=== PATIENT | male | born 1955 | race Two or more races ===

== ENCOUNTER 2024-07-25 15:03 | Inpatient (IN) | payer MEDICAID, OTHER ==
[~2024-07-25] VITALS: Ht 175.3 cm; Wt 99.0 kg
[2024-07-25 15:41] LABS: Basophils # (auto) 0 10 ^3/uL (0-0.2); Basophils % (auto) 0.5 % (0.0-2.0); Eosinophils # (auto) 0.1 10 ^3/uL (0-0.8); Eosinophils % (auto) 1.4 % (0.0-7.0); Hemoglobin 12.4 g/dL (13.5-17.5); Lymphocytes # (auto) 1.3 10 ^3/uL (0.4-5.4); Lymphocytes % (auto) 18.9 % (10.0-50.0); Mean Corpuscular Hemoglobin 29.5 pg (28.0-32.0); Mean Corpuscular Hgb Conc. 34.5 g/dL (32.0-36.0); Mean Corpuscular Volume 85.6 fL (80.0-100.0); Monocytes # (auto) 0.8 10 ^3/uL (0-1.3); Monocytes % (auto) 11.3 % (0.0-12.0); Neutrophils # (auto) 4.8 10 ^3/uL (1.6-8.6); Neutrophils % (auto) 67.9 % (37.0-80.0); Platelet Count (auto) 259 10^3/uL (140-450); Red Cell Distribution Width 14.2 % (11.8-14.3); White Blood Cell 7.1 10^3/uL (4.4-10.8)
[2024-07-25 15:48] LABS: Chloride 106 mmol/L (98-107); Potassium 4.1 mmol/L (3.5-5.1); Sodium 141 mmol/L (136-145)
[2024-07-25 15:49] LABS: Anion Gap 7 (5-15); Calcium 9.4 mg/dL (8.7-10.4); Carbon Dioxide 28 mmol/L (20-31)
[2024-07-25 15:54] LABS: BUN/Creatinine Ratio 14.3 (10.0-20.0); Blood Urea Nitrogen 15 mg/dL (9-23); Glucose 156 mg/dL (74-106)
--- NOTE | 2024-07-25 16:00 | DVH ---
EXAM: CT HEAD WITHOUT CONTRAST INDICATION: near syncope TECHNIQUE: CT of the head without intravenous contrast. Radiation Dose : 1. Head: CT Dose: CTDI volume is 59.05 mGy. Dose-length product is 1064.59 mGy*cm The dose indicators for CT are the volume Computed Tomography (CT) Dose Index (CTDIvol) and the Dose Length Product (DLP), and are measured in units of mGy and mGy-cm, respectively. These indicators are not patient dose, but values generated from the CT scanner acquisition factors. The report includes radiation exposure data for exposures received during this examination. COMPARISON: None FINDINGS: There is no evidence of acute intracranial hemorrhage, extra-axial collection, mass effect, midline s hift, herniation or hydrocephalus. The ventricles, sulci and cisterns are age appropriate. The moreau-white differentiation is intact. Patchy periventricular and subcortical white matter hypoattenuation is nonspecific but may be related to small vessel ischemic disease. The visualized paranasal sinuses and mastoid air cells are clear. The surrounding soft tissues and osseous structures are unremarkable. IMPRESSION: 1. No acute intracranial abnormality. Radiation optimization: All CT scans at this facility use at least one of these dose optimization marvin hniques: automated exposure control mA and/or kV adjustment per patient size (includes targeted exam s where dose is matched to clinical indication) or iterative reconstruction.
--- NOTE | 2024-07-25 16:01 | DVH ---
EXAM: XR Chest, 1 View CLINICAL INDICATION: near syncope TECHNIQUE: Frontal view of the chest. COMPARISON: None FINDINGS: LUNGS AND PLEURAL SPACES: Unremarkable. No consolidation. No pneumothorax. HEART: Unremarkable. No cardiomegaly. MEDIASTINUM: Unremarkable. Normal mediastinal contour. BONES/JOINTS: Unremarkable. No acute fracture. OTHER FINDINGS: . . . IMPRESSION: No acute cardiopulmonary process. HS:Y
[2024-07-25 18:27] LABS: Urine Bacteria None Seen /hpf (None Seen)
[2024-07-25 18:35] LABS: Urine Blood 1+ /uL (Negative); Urine Clarity Clear (Clear); Urine Color Light-Yellow (Yellow); Urine Protein, UAD 3+ (Negative); Urine Specific Gravity 1.025 (1.001-1.035); Urine Urobilinogen Normal (Negative); Urine WBC 1 /hpf (0 - 3)
[2024-07-25] MEDS: HYDROcodone-ACET 5/325MG TAB PO ONE (20:00)
--- NOTE | 2024-07-25 20:10 | ED.PDOC ---
HPI (NEURO) HPI Comments 68y M who presents to the ED for chief complaint of dizziness. Pt states he has had 2x falls in the past 1 week. Pt had mechanical fall 1 week prior and fell on L leg and has been having weakness since. Pt earlier this AM, was using restroom and had mechanical fall onto bathtub and states he fell on his chest and has been having pain by the R side of his chest. Pt denies any associated loss of consciousness and is alert and oriented x 4 in the ED. Pt since has been having pain radiating to the L hip and back with associated dizziness and came to the ED for further evaluation. Pt has noted elevated blood pressure of 168/91 in the ED, with all other vitals in normal range. Pt in the ED, otherwise denies any other symptoms at this time. Chief Complaint: Dizziness Time Seen by MD: 20:06 Reviewed Notes: Medications, Allergies Information Source: Patient, Spouse Mode of Arrival: Wheelchair Brought in by: spouse Past Medical History PAST MEDICAL HISTORY: DM Surgical History: Denies all surgeries Family History Family History: Reviewed,noncontributory to illness Social History Smoker: Non-Smoker Alcohol: Denies ETOH Use Drugs: Denies Drug Use Lives In: Home Constitutional: denies: chills, diaphoresis, fatigue, fever, malaise, sweats, weakness, others EENTM: denies: blurred vision, double vision, ear bleeding, ear discharge, ear drainage, ear pain, ear ringing, eye pain, eye redness, hearing loss, mouth pain, mouth swelling, nasal discharge, nose bleeding, nose congestion, nose pain, photophobia, tearing, throat pain, throat swelling, voice changes, others Respiratory: denies: cough, hemoptysis, orthopnea, SOB at rest, shortness of breath, SOB with excertion, stridor, wheezing, others Cardiovascular: denies: chest pain, dizzy spells, diaphoresis, Dyspnea on exertion, edema, irregular heart beat, left arm pain, lightheadedness, palpitations, PND, syncope, others Gastrointestinal: denies: abdomen distended, abdominal pain, blood streaked bowels, constipated, diarrhea, dysphagia, difficulty swallowing, hematemesis, melena, nausea, poor appetite, poor fluid intake, rectal bleeding, rectal pain, vomiting, others Genitourinary: denies: burning, dysuria, flank pain, frequency, hematuria, incontinence, penile discharge, penile sore, pain, testicle pain, testicle swelling, urgency, others Neurological: reports: dizziness; denies: fainting, headache, left sided numbness, left sided weakness, numbness, paresthesia, pre-existing deficit, right sided numbness, right sided weakness, seizure, speech problems, tingling, tremors, weakness, others Musculoskeletal: reports: back pain, others (chest wall pain); denies: gout, joint pain, joint swelling, muscle pain, muscle stiffness, neck pain Integumetry: denies: bruises, change in color, change in hair/nails, dryness, laceration, lesions, lumps, rash, wounds, others Allergic/Immunocompromised: denies: Difficulty Healing, Frequent Infections, Hives, Itching, others Hematologic/Lymphatic: denies: anemia, blood clots, easy bleeding, easy bruisi ng, swollen glands, others Endocrine: denies: excessive hunger, excessive sweating, excessive thirst, exce ssive urination, flushing, intolerance to cold, intolerance to heat, unexplained weight gain, unexplained weight loss, others Psychiatric: denies: anxiety, bipolar disorder, depression, hopeless, panic disorder, schizophrenia, sleepless, suicidal, others All Other Systems: Reviewed and Negative Physical Exam General Appearance: No Apparent Distress, Normal HEENT: Normal ENT Inspection, Pharynx Normal, TMs Normal Neck: Full Range of Motion, Non-Tender, Normal, Normal Inspection Respiratory: Chest Non-Tender, Lungs Clear, No Accessory Muscle Use, No Respiratory Distress, Normal Breath Sounds Cardiovascular: Other (R sided chest wall tenderness to palpation) Breast Exam: Deferred Gastrointestinal: No Organomegaly, Non Tender, No Pulsatile Mass, Normal Bowel Sounds, Soft Genitalia: Deferred Pelvic: Deferred Rectal: Deferred Extremities: No calf tenderness, Normal capillary refill, Normal inspection, Normal range of motion, Non-tender, No pedal edema Musculoskeletal : Apperance: Normal Neurologic: Alert, health science specialist II-XII nml as Tested, No Motor Deficits, Normal Affect, Normal Mood, No Sensory Deficits Cerebellar Function: NOT DONE Reflexes: NOT DONE Skin: Dry, Normal Color, Warm Lymphatic: No Adenopathy Was a procedure done? Was a procedure done?: No Differential Diagnosis (SZ) General Weakness: Anemia, Dehydration, Electrolyte imbalance, Hypoglycemia, TIA, Other (metabolic encephalopathy, chest wall pain, ) X-Ray, Labs, Meds, VS Vital Signs Date Time Temp Pulse Resp B/P (MAP) Pulse Ox O2 Delivery O2 Flow Rate FiO2 07/25/24 23:47 88 20 94 Room Air* 0 21 07/25/24 23:46 98.0 88 20 147/87 (107) 94 98.0 07/25/24 15:40 99.2 91 18 168/91 (116) 97 07/25/24 15:28 89 Lab Test 07/25/24 18:13 07/25/24 16:54 07/25/24 15:26 Range/Units Urine Color Light-yellow Yellow Urine Clarity Clear Clear Urine pH 6.0 5.0-9.0 Urine Specific [place] 1.025 1.001-1.035 Urine Protein 3+ H Negative Urine Ketones Negative Negative Urine Blood 1+ H Negative /uL Urine Nitrite Negative Negative Urine Bilirubin Negative Negative Urine Urobilinogen Normal Negative mg/dL Urine Leukocyte Esterase Negative Negative /uL Urine RBC 1 0 - 3 /hpf Urine WBC 1 0 - 3 /hpf Urine Squamous Epithelial Cells None seen <5 /hpf Urine Bacteria None seen None Seen /hpf Urine Glucose 4+ H Normal mg/dL Troponin I High Sensitivity 6 6 </=54 ng/L White Blood Count 7.1 4.4-10.8 10^3/uL Red Blood Count 4.20 L 4.5-5.90 10^6/uL Hemoglobin 12.4 L 13.5-17.5 g/dL Hematocrit 36.0 L 41.0-53.0 % Mean Corpuscular Volume 85.6 80.0-100.0 fL Mean Corpuscular Hemoglobin 29.5 28.0-32.0 pg Mean Corpuscular Hemoglobin Concent 34.5 32.0-36.0 g/dL Red Cell Distribution Width 14.2 11.8-14.3 % Platelet Count 259 140-450 10^3/uL Mean Platelet Volume 8.0 6.9-10.8 fL Neutrophils (%) (Auto) 67.9 37.0-80.0 % Lymphocytes (%) (Auto) 18.9 10.0-50.0 % Monocytes (%) (Auto) 11.3 0.0-12.0 % Eosinophils (%) (Auto) 1.4 0.0-7.0 % Basophils (%) (Auto) 0.5 0.0-2.0 % Neutrophils # (Auto) 4.8 1.6-8.6 10 ^3/uL Lymphocytes # (Auto) 1.3 0.4-5.4 10 ^3/uL Monocytes # (Auto) 0.8 0-1.3 10 ^3/uL Eosinophils # (Auto) 0.1 0-0.8 10 ^3/uL Basophils # (Auto) 0 0-0.2 10 ^3/uL Nucleated Red Blood Cells 0.0 % Sodium Level 141 136-145 mmol/L Potassium Level 4.1 3.5-5.1 mmol/L Chloride Level 106 98-107 mmol/L Carbon Dioxide Level 28 20-31 mmol/L Anion Gap 7 5-15 Blood Urea Nitrogen 15 9-23 mg/dL Creatinine 1.05 0.700-1.30 mg/dL Glomerular Filtration Rate Calc 77 >90 mL/min BUN/Creatinine Ratio 14.3 10.0-20.0 Serum Glucose 156 H 74-106 mg/dL Hemoglobin A1c Pending Calcium Level 9.4 8.7-10.4 mg/dL Current Medications Medications (Trade) Dose Ordered Sig/Hazel Route Start Time Stop Time Status Last Admin Acetaminophen/ Hydrocodone Bitart ([place] 5/325MG Tab) 1 tab ONCE ONCE PO 07/25/24 20:00 07/25/24 23:54 DC 07/25/24 20:00 [place] [address] Ph: [phone] DIAGNOSTIC IMAGING Diagnostic Imaging Report : [id number] Signed PATIENT: JOHN LIGHT ACCT: [id number] UNIT: [id number] : 1955 LOC: ER ROOM / BED: / AGE / SEX: 68 / M ADM STATUS: REG ER SERVICE 1520 ORDERING PHYSICIAN: GINO PICHARDO MD PROCEDURE(s): HWOCT - HEAD WITHOUT CONTRAST REASON: near syncope ORDER NUMBER(s): [id number], ACCESSION NUMBER(s): [id number] EXAM: CT HEAD WITHOUT CONTRAST INDICATION: near syncope TECHNIQUE: CT of the head without intravenous contrast. Radiation Dose : 1. Head: CT Dose: CTDI volume is 59.05 mGy. Dose-length product is 1064.59 mGy*cm The dose indicators for CT are the volume Computed Tomography (CT) Dose Index (CTDIvol) and the Dose Length Product (DLP), and are measured in units of mGy and mGy-cm, respectively. These indicators are not patient dose, but values ge nerated from the CT scanner acquisition factors. The report includes radiation exposure data for exposures received during this examination. COMPARISON: None FINDINGS: There is no evidence of acute intracranial hemorrhage, extra-axial collection, mass effect, midline shift, herniation or hydrocephalus. The ventricles, sulci and cisterns are age appropriate. The moreau-white differentiation is intact. Patchy periventricular and subcortical white matter hypoattenuation is nonspecific but may be related to small vessel ischemic disease. The visualized paranasal sinuses and mastoid air cells are clear. The surrounding soft tissues and osseous structures are unremarkable. IMPRESSION: 1. No acute intracranial abnormality. Radiation optimization: All CT scans at this facility use at least one of these dose optimization techniques: automated exposure control mA and/or kV ad justment per patient size (includes targeted exams where dose is matched to clinical indication) or iterative reconstruction. ATED BY: ABY CARDENAS MD DICTATED DATE/TIME: 07/25/241556 SIGNED BY: ABY CARDENAS MD SIGNED DATE/TIME: 07/25/241556 CC: [place] [address] Ph: [phone] DIAGNOSTIC IMAGING Diagnostic Imaging Report : [id number] Signed PATIENT: JOHN LIGHT ACCT: [id number] UNIT: [id number] : 1955 LOC: ER ROOM / BED: / AGE / SEX: 68 / M ADM STATUS: REG ER SERVICE 1520 ORDERING PHYSICIAN: GINO PICHARDO MD PROCEDURE(s): CXR2 - CHEST TWO VIEWS ROUTINE REASON: near syncope ORDER NUMBER(s): [id number], ACCESSION NUMBER(s): [id number] EXAM: XR Chest, 1 View CLINICAL INDICATION: near syncope TECHNIQUE: Frontal view of the chest. COMPARISON: None FINDINGS: LUNGS AND PLEURAL SPACES: Unremarkable. No consolidation. No pneumothorax. HEART: Unremarkable. No cardiomegaly. MEDIASTINUM: Unremarkable. Normal mediastinal contour. BONES/JOINTS: Unremarkable. No acute fracture. OTHER FINDINGS: . . . IMPRESSION: No acute cardiopulmonary process. HS:Y ATED BY: ALVA FRENCH MD DICTATED DATE/TIME: 07/25/24 155 SIGNED BY: ALVA FRENCH MD SIGNED DATE/TIME: 07/25/24 155 CC: Time of 1ST Reevaluation: 20:35 Reevaluation 1ST: Unchanged Patient Education/Counseling: Diagnosis, Treatment Family Education/Counseling: Diagnosis, Treatment Departure 1 Departure Time of Disposition: 00:50 (Patient presented with dizziness today and should be admitted. Data: 1. I ordered and reviewed the result of at least 3 labs including a CBC, BMP, and troponin. 2. I independently interpreted the following tests: EKG which shows a sinus arrhythmia and a chest x-ray which shows benign chest and a CT head which shows benign brain.Risk:This patient has a high risk of morbidity due to further diagnostic testing or treatment and may suffer from an acute cardiac, neurologic, or infectious disorder. Rationale: Patient should be admitted to the hospital for further management.) Impression: Primary Impression: Dizziness Additional Impression: Multiple falls Disposition: ADMITTED INPATIENT Admit to: Med Surg Condition: Serious Critical Care Note Critical Care Time?: No Stability Stability form required: No Heart Score Heart Score: Heart Score Response (Comments) Value History N/A 0 EKG N/A 0 Age N/A 0 Risk Factors N/A 0 Troponin N/A 0 Total 0 I personally scribed for GINO PICHARDO MD ([email or web address]) on 07/25/24 at 20:10. Electronically submitted by Jojo Collins ([email or web address]). I personally scribed for GINO PICHARDO MD ([email or web address]) on 07/25/24 at 20:14. Electronically submitted by Jojo Collins ([email or web address]). GINO PICHARDO MD Jul 25, 2024 20:10
[2024-07-25 23:47] VITALS: PULSE 88; RESP 20; O2SAT 94
[2024-07-26] VITALS (9 sets, daily range): BP systolic 143–177; BP diastolic 50–96; PULSE 80–91; RESP 16–20; TEMP 97.6–98.4; O2SAT 92–96
[2024-07-26] MEDS ORDERED: ACETAMINOPHEN 325 MG TAB PO PRN (00:30)
[2024-07-26] MEDS ORDERED: ONDANSETRON HCL 4 MG/2 ML VIAL IV PRN (00:30)
[2024-07-26] MEDS ORDERED: DOCUSATE SOD 100 MG CAP PO PRN (00:30)
[2024-07-26] MEDS ORDERED: MORPHINE SULFATE INJ 2 MG/ml SYRG IV PRN ×2 (00:30→01:30)
--- NOTE | 2024-07-26 01:26 | DVHHP2 ---
History of Present Illness Reason for Visit: Dizziness History of Present Illness The patient is a 68-year-old male with past medical history of diabetes mellitus who presented to [facility] ED for evaluation of dizziness. Patient reports he has had 2x falls in the past 1 week, had mechanical fall 1 week prior, fell on Left leg, and has been having weakness since. Patient was using restroom and had mechanical fall onto bathtub, states he fell on his chest and has been having pain by the right side of his chest, has been having pain radiating to the Left hip and back with associated dizziness, getting worse that prompted this visit. Patient was seen and evaluated in the ED, laboratory data shows WBC 7.1, platelets 259, sodium 141, potassium 4.1, BUN 15, creatinine 1.05, glucose 156, hemoglobin A1c 6.8, troponin 6. Head CT showed no acute intracranial abnormality. Left hip CT revealing nondisplaced fracture through the left greater trochanter; visualized pelvic viscera demonstrates moderate prostatomegaly. Please see medication orders section in the computer. On my assessment, patient denied chest pain, no headache, no dizziness, no diaphoresis, no shortness of breath, no nausea, no vomiting, no fever, no chills. Patient was admitted for further evaluation and medical management. Past Medical History DM Past Surgical History Denies all surgeries Family History Reviewed, noncontributory to the management of this case. Past Social History The patient lives at home, denies smoking, alcohol or illicit drugs abuse. Review of Systems Constitutional: Yes: Weakness; No: Fever, Chills, Sweats, Malaise, Other Eyes: No: Pain, Vision change, Conjunctivae inflammation, Eyelid inflammation, Other, Redness ENT: No: Ear pain, Ear discharge, Nose pain, Nose discharge, Nose congestion, Mouth pain, Mouth swelling, Throat pain, Throat swelling, Other Respiratory: No: Cough, Dry, Shortness of breath, SOB with excertion, Wheezing, Hemoptysis, Pleuritic Pain, Sputum, Wheezing, Other Cardiovascular: No: Chest Pain, Palpitations, Orthopnea, Paroxysmal Noc. Dyspnea, Edema, Lt Headedness, Other Gastrointestinal: No: Nausea, Vomiting, Abdominal Pain, Diarrhea, Constipation, Melena, Hematochezia, Other Genitourinary: No Dysuria, No Frequency, No Incontinence, No Hematuria, No Retention, No Other Musculoskeletal: other (Left hip pain), back pain; No: neck pain, shoulder p ain, arm pain, hand pain, leg pain, foot pain Skin: No: Rash, Lesions, Jaundice, Bruising, Other Neurological: No: Weakness, Numbness, Incoordination, Change in speech, Confusion, Seizures, Other Allergies: Coded Allergies: NO KNOWN ALLERGIES (Unverified , 07/25/24) Medications Current Medications Medications Dose Ordered Sig/Hazel Route Start Time Stop Time Status Last Admin Dose Admin Hydralazine HCl 10 mg Q6HP PRN IV 07/26/24 00:30 Sodium Chloride 10 ml Q8HR IV 07/26/24 06:00 Acetaminophen/ Hydrocodone Bitart 1 tab Q4HP PRN PO 07/26/24 00:30 Ondansetron HCl 4 mg Q4HP PRN IV 07/26/24 00:30 Docusate Sodium 100 mg BIDPRN PRN PO 07/26/24 00:30 Enoxaparin Sodium 40 mg DAILY SC 07/26/24 10:00 Acetaminophen 650 mg Q6HP PRN PO 07/26/24 00:30 Morphine Sulfate 2 mg Q4HPRN PRN IV 07/26/24 00:30 Exam Vital Signs Vital Signs Date Time Temp Pulse Resp B/P (MAP) Pulse Ox O2 Delivery O2 Flow Rate FiO2 07/25/24 23:47 88 20 94 Room Air* 0 21 07/25/24 23:46 98.0 147/87 (107) 98.0 General Appearance: Alert, Oriented X3, Cooperative, No acute distress HEENT: Atraumatic, PERRLA, EOMI, Mucous membr. moist/pink Respiratory: Clear to auscultation, Normal air movement Cardiovascular: Regular rate, Normal S1, Normal S2, No murmurs Abdominal: Normal bowel sounds, Soft, No tenderness, No hepatospenomegaly, No masses Extremities: No clubbing, No cyanosis, No edema, Normal pulses, Other (Left hip tenderness) Skin: No rashes, No breakdown, No significant lesion Neuro: Normal speech, Normal tone, Sensation intact, Cranial nerves 3-12 NL, Reflexes 2+, Other (Generalized weakness) Psych/Mental Status: Mental status NL, Mood NL Labs/Xrays Labs Test 07/25/24 18:13 07/25/24 16:54 07/25/24 15:26 Range/Units Urine Color Light-yellow Yellow Urine Clarity Clear Clear Urine pH 6.0 5.0-9.0 Urine Specific [place] 1.025 1.001-1.035 Urine Protein 3+ H Negative Urine Ketones Negative Negative Urine Blood 1+ H Negative /uL Urine Nitrite Negative Negative Urine Bilirubin Negative Negative Urine Urobilinogen Normal Negative mg/dL Urine Leukocyte Esterase Negative Negative /uL Urine RBC 1 0 - 3 /hpf Urine WBC 1 0 - 3 /hpf Urine Squamous Epithelial Cells None seen <5 /hpf Urine Bacteria None seen None Seen /hpf Urine Glucose 4+ H Normal mg/dL Troponin I High Sensitivity 6 </=54 ng/L White Blood Count 7.1 4.4-10.8 10^3/uL Red Blood Count 4.20 L 4.5-5.90 10^6/uL Hemoglobin 12.4 L 13.5-17.5 g/dL Hematocrit 36.0 L 41.0-53.0 % Mean Corpuscular Volume 85.6 80.0-100.0 fL Mean Corpuscular Hemoglobin 29.5 28.0-32.0 pg Mean Corpuscular Hemoglobin Concent 34.5 32.0-36.0 g/dL Red Cell Distribution Width 14.2 11.8-14.3 % Platelet Count 259 140-450 10^3/uL Mean Platelet Volume 8.0 6.9-10.8 fL Neutrophils (%) (Auto) 67.9 37.0-80.0 % Lymphocytes (%) (Auto) 18.9 10.0-50.0 % Monocytes (%) (Auto) 11.3 0.0-12.0 % Eosinophils (%) (Auto) 1.4 0.0-7.0 % Basophils (%) (Auto) 0.5 0.0-2.0 % Neutrophils # (Auto) 4.8 1.6-8.6 10 ^3/uL Lymphocytes # (Auto) 1.3 0.4-5.4 10 ^3/uL Monocytes # (Auto) 0.8 0-1.3 10 ^3/uL Eosinophils # (Auto) 0.1 0-0.8 10 ^3/uL Basophils # (Auto) 0 0-0.2 10 ^3/uL Nucleated Red Blood Cells 0.0 % Sodium Level 141 136-145 mmol/L Potassium Level 4.1 3.5-5.1 mmol/L Chloride Level 106 98-107 mmol/L Carbon Dioxide Level 28 20-31 mmol/L Anion Gap 7 5-15 Blood Urea Nitrogen 15 9-23 mg/dL Creatinine 1.05 0.700-1.30 mg/dL Glomerular Filtration Rate Calc 77 >90 mL/min BUN/Creatinine Ratio 14.3 10.0-20.0 Serum Glucose 156 H 74-106 mg/dL Hemoglobin A1c 6.8 H <5.7 % A1C Calcium Level 9.4 8.7-10.4 mg/dL PATIENT: JOHN LIGHT ACCT: [id number] UNIT: [id number] : 1955 LOC: ER ROOM / BED: / AGE / SEX: 68 / M ADM STATUS: REG ER SERVICE 1520 ORDERING PHYSICIAN: GINO PICHARDO MD PROCEDURE(s): HWOCT - HEAD WITHOUT CONTRAST REASON: near syncope ORDER NUMBER(s): [id number], ACCESSION NUMBER(s): [id number] EXAM: CT HEAD WITHOUT CONTRAST INDICATION: near syncope TECHNIQUE: CT of the head without intravenous contrast. Radiation Dose : 1. Head: CT Dose: CTDI volume is 59.05 mGy. Dose-length product is 1064.59 mGy*cm The dose indicators for CT are the volume Computed Tomography (CT) Dose Index (CTDIvol) and the Dose Length Product (DLP), and are measured in units of mGy an d mGy-cm, respectively. These indicators are not patient dose, but values generated from the CT scanner acquisition factors. The report includes radiation exposure data for exposures received during this examination. COMPARISON: None FINDINGS: There is no evidence of acute intracranial hemorrhage, extra-axial collection, mass effect, midline shift, herniation or hydrocephalus. The ventricles, sulci and cisterns are age appropriate. The moreau-white differentiation is intact. Patchy periventricular and subcortical white matter hypoattenuation is nonspecific but may be related to small vessel ischemic disease. The visualized paranasal sinuses and mastoid air cells are clear. The surrounding soft tissues and osseous structures are unremarkable. IMPRESSION: 1. No acute intracranial abnormality. ORDERING PHYSICIAN: ROHINI ZEE DNP PROCEDURE(s): LHPCT - CT L HIP WITH OUT CONTRAST REASON: Left hip pain ORDER NUMBER(s): [id number], ACCESSION NUMBER(s): [id number] INDICATION: Left hip pain COMPARISON: CT HEAD WITHOUT CONTRAST on DOS: 07/25/24 TECHNIQUE: CT of the left left hip was performed without contrast. Volume transverse images were obtained and reconstructed in multiple planes using bone and soft tissue algorithms. Radiation Dose Information: CT Dose: CTDI volume is 22 mGy. Dose-length product is 788 mGy*cm Findings/ IMPRESSION: Nondisplaced fracture through the left greater trochanter. Visualized pelvic viscera demonstrates moderate prostatomegaly. ORDERING PHYSICIAN: GINO PICHARDO MD PROCEDURE(s): CXR2 - CHEST TWO VIEWS ROUTINE REASON: near syncope ORDER NUMBER(s): [id number], ACCESSION NUMBER(s): [id number] EXAM: XR Chest, 1 View CLINICAL INDICATION: near syncope TECHNIQUE: Frontal view of the chest. COMPARISON: None FINDINGS: LUNGS AND PLEURAL SPACES: Unremarkable. No consolidation. No pneumothorax. HEART: Unremarkable. No cardiomegaly. MEDIASTINUM: Unremarkable. Normal mediastinal contour. BONES/JOINTS: Unremarkable. No acute fracture. OTHER FINDINGS: IMPRESSION: No acute cardiopulmonary process. Assessment/Plan Assessment/Plan Dizziness Multiple falls Left hip fracture Left hip pain Generalized weakness Diabetes mellitus with hyperglycemia Plan 1. Admit to med surge unit 2. Breathing treatment 3. Pain control management 4. Management of fluids and electrolytes 5. Consultation for hospitalist 6. Diagnostic tests chest x-ray 7. DVT prophylaxis-on SCDs 8. Repeat labs CBC, CMP in a.m. 9. Continue with current medical management 10. Treatment plan discussed with patient and RN. Patient verbalized understanding. Plan discussed with: Patient, Other (RN) My Orders Orders - ROHINI ZEE DNP Procedure Category Date Status Time Ct L Hip With Out CT 07/26/24 Taken Contrast 00:30 Hydralazine Injection PHA 07/26/24 In Process (Apresoline Inject 00:30 Allergies BRANDON 07/26/24 In Process 00:30 Code Status CODE 07/26/24 Transmitted 00:30 Sodium Chloride Lock PHA 07/26/24 In Process (Saline Lock Ns) 06:00 Oxygen Per Hour RT 07/26/24 Transmitted 00:30 Hydrocodone-Acet PHA 07/26/24 In Process 5/325mg Tab ([place] 00:30 Ondansetron Hcl PHA 07/26/24 In Process (Zofran) 00:30 Docusate Sodium PHA 07/26/24 In Process Capsule (Colace 00:30 Enoxaparin Sodium PHA 07/26/24 In Process (Lovenox) 10:00 Fall Risk Precautions BRANDON 07/26/[address] 00:30 Complete Blood Count LAB 07/27/24 Verified 04:00 Comprehensive LAB 07/27/24 Verified Metabolic Panel 04:00 Cardiac DIET 07/26/24 Transmitted Diet-2gna,Lofat,Lochol Breakfast Condition: Serious BRANDON 07/26/24 In Process 00:30 Acetaminophen Tablet PHA 07/26/24 In Process (Tylenol Tablet) 00:30 Morphine Sulfate PHA 07/26/24 In Process Injection 00:30 Sequential BRANDON 07/26/24 In Process Compression Device Admit ADMIT 07/26/24 Verified 01:25 Nitroglycerin PHA 07/26/24 Verified Sublingual (Ntrostat 01:30 Problem List: (1) Dizziness (2) Hip fracture, left (3) Multiple falls (4) Left hip pain (5) Generalized weakness (6) Diabetes mellitus with hyperglycemia Date of Service: Jul 26, 2024 Billing Provider: ROHINI ZEE DNP Common Visit Codes: [id number] INP/OBS CARE (HIGH) ROHINI ZEE DNP Jul 26, 2024 01:26
[2024-07-26] MEDS ORDERED: NITROGLYCERIN 0.4 MG SL TAB SL PRN (01:30)
--- NOTE | 2024-07-26 01:52 | DVH ---
INDICATION: Left hip pain COMPARISON: CT HEAD WITHOUT CONTRAST on DOS: 07/25/24 TECHNIQUE: CT of the left left hip was performed without contrast. Volume transverse images were obta ined and reconstructed in multiple planes using bone and soft tissue algorithms. Radiation Dose Information: CT Dose: CTDI volume is 22 mGy. Dose-length product is 788 mGy*cm Findings/ IMPRESSION: Nondisplaced fracture through the left greater trochanter. Visualized pelvic viscera demonstrates mod erate prostatomegaly. All CT scans at this medical facility are performed using dose modulation techniques as appropriate t o a performed exam including the following: Automated exposure control was utilized; adjustment of th e MA and/or KV according to patient size; and use of iterative reconstruction technique.
[2024-07-26] MEDS: hydrALAZINE HCL 20 MG/ML VL IV PRN (02:55)
[2024-07-26] MEDS ORDERED: METF-371 PO ×2 (03:31→15:37)
[2024-07-26] MEDS ORDERED: DEXTROSE (50%) 50ML SYRG IV PRN (04:15)
[2024-07-26] MEDS: HYDROcodone-ACET 5/325MG TAB PO PRN (06:07)
[2024-07-26] MEDS: InsuLIN REG 1unit/0.01ml Soln (100units/ml) SC SCH (06:10)
[2024-07-26] MEDS: SODIUM CHLOR 0.9% PF (SALINE LOCK) 10ML VIAL/SYR IV SCH (06:11)
[2024-07-26] MEDS: ACCU-CHEK COMFORT CURVE STRIP VI SCH (06:11)
[2024-07-26] MEDS: NIFEdipine ER 30 MG TAB PO ONE (08:25)
[2024-07-26 09:03] LABS: Basophils # (auto) 0 10 ^3/uL (0-0.2); Basophils % (auto) 0.5 % (0.0-2.0); Eosinophils # (auto) 0.1 10 ^3/uL (0-0.8); Eosinophils % (auto) 1.6 % (0.0-7.0); Hematocrit 37.3 % (41.0-53.0); Hemoglobin 12.6 g/dL (13.5-17.5); Lymphocytes # (auto) 1.6 10 ^3/uL (0.4-5.4); Lymphocytes % (auto) 20.4 % (10.0-50.0); Mean Corpuscular Hemoglobin 28.9 pg (28.0-32.0); Mean Corpuscular Hgb Conc. 33.8 g/dL (32.0-36.0); Mean Corpuscular Volume 85.4 fL (80.0-100.0); Monocytes # (auto) 0.8 10 ^3/uL (0-1.3); Monocytes % (auto) 10.7 % (0.0-12.0); Neutrophils # (auto) 5.3 10 ^3/uL (1.6-8.6); Neutrophils % (auto) 66.8 % (37.0-80.0); Nucleated Red Blood Cells % 0.1 %; Platelet Count (auto) 259 10^3/uL (140-450); Red Blood Cells 4.36 10^6/uL (4.5-5.90); Red Cell Distribution Width 14.3 % (11.8-14.3); White Blood Cell 7.9 10^3/uL (4.4-10.8)
[2024-07-26 09:18] LABS: INR 1.02 (0.9-1.15); Partial Thromboplastin Time 29.6 SEC (24.5-34.5); Prothrombin Time 10.8 sec (9.3-11.8)
[2024-07-26 09:24] LABS: Alanine Aminotransferase 10 U/L (7-40); Albumin 3.9 g/dL (3.2-4.8); Alkaline Phosphatase 84 U/L (46-116); Anion Gap 8 (5-15); Aspartate Aminotransferase < 8 U/L (13-40); BUN/Creatinine Ratio 15.3 (10.0-20.0); Bilirubin, Total 0.5 mg/dL (0.2-1.0); Blood Urea Nitrogen 18 mg/dL (9-23); Calcium 9.5 mg/dL (8.7-10.4); Carbon Dioxide 27 mmol/L (20-31); Chloride 106 mmol/L (98-107); Glucose 127 mg/dL (74-106); Potassium 3.5 mmol/L (3.5-5.1); Sodium 141 mmol/L (136-145); Total Protein 6.8 g/dL (5.7-8.2)
[2024-07-26 10:08] LABS: Amphetamine Screen, Urine Neg (NEGATIVE)
[2024-07-26 10:09] LABS: Barbiturate Scree,Urine Neg (NEGATIVE); Benzodiazephine Screen, Urine Neg (NEGATIVE); Cannabinoid Screen, Urine Neg (NEGATIVE); Cocaine Screen, Urine Neg (NEGATIVE); Opiate Scree,Urine Neg (NEGATIVE); Phencyclidine Screen, Urine Neg (NEGATIVE)
[2024-07-26] MEDS: ENOXAPARIN SOD 40 MG/0.4 ML SYRINGE SC SCH (10:55)
--- NOTE | 2024-07-26 13:56 | DVHPNRES ---
Progress Note Date Seen: Jul 26, 2024 Resident Creating Document: ABIOLA AGRAWAL RESIDENT Medical Necessity Reason Pt with a Central, PICC or Fol: No Subjective Review of Systems NADEGE,Rochelle a 68 years old male with a PMH of type 2 DM, HTN presented to the ED with the chief complaints of Left hip pain after mechanical fall. 1 week proir patient was walking, tripped fell on the left side of his body, did not hit his head, since then patient has been feeling mild weakness in the left leg and limited activities. Two days back while taking shower, he felt left leg was very weak, unable to bear the weight, fell in the bathtub towards his right side, Complaining of ribcage pain and some bruits on right flank.. On my assessment patient denies fever, nausea, vomiting, dizziness, loss of consciousness, chest pain, palpitations, abdominal pain and other associated symptoms. PMH: Type 2 DM, HTN PSH: Denies Family history: Reviewed, noncontributory Social history: Lives at home. Denies smoking, alcohol and other drug abuse Allergies: No known allergies Patient seen and examined at the bedside. Patient reports improvement in his symptoms since admission. Sleep was good. Currently on diabetic and cardiac diet. Head CT showed no acute changes. Hip CT showed nondisplaced fracture of left greater trochanter. Consulted our the position for possible surgical evaluation. Patient reports: Feels better Objective vital signs Vital Sign Date Time Temp Pulse Resp B/P (MAP) Pulse Ox O2 Delivery O2 Flow Rate FiO2 07/26/24 13:00 97.6 81 19 159/89 (112) 95 97.6 07/26/24 03:32 Room Air* 0 21 Total Intake and Output 07/25/24 07/25/24 07/26/24 15:00 23:00 07:00 Intake Total 200 ml Output Total 1 ml Balance 199 ml medications Current Medications Medications Dose Ordered Sig/Hazel Route Start Time Stop Time Status Last Admin Dose Admin Sodium Chloride 10 ml Q8HR IV 07/26/24 06:00 07/26/24 06:11 10 ML Acetaminophen/ Hydrocodone Bitart 1 tab Q4HP PRN PO 07/26/24 00:30 07/26/24 06:07 1 TAB Ondansetron HCl 4 mg Q4HP PRN IV 07/26/24 00:30 Docusate Sodium 100 mg BIDPRN PRN PO 07/26/24 00:30 Enoxaparin Sodium 40 mg DAILY SC 07/26/24 10:00 07/26/24 10:55 40 MG Acetaminophen 650 mg Q6HP PRN PO 07/26/24 00:30 Morphine Sulfate 2 mg Q4HPRN PRN IV 07/26/24 00:30 Nitroglycerin 0.4 mg Q5MINP PRN SL 07/26/24 01:30 Morphine Sulfate 2 mg Q30M PRN IV 07/26/24 01:30 Diagnostic Test (Pha) 1 strip ACHS 07/26/24 07:00 07/26/24 12:29 1 STRIP Insulin Human Regular ACHS SC 07/26/24 07:00 07/26/24 12:29 3 UNITS Dextrose 50 ml UD PRN IV 07/26/24 04:15 Nifedipine 30 mg DAILY PO 07/27/24 10:00 Examination Pt is lying on bed General Appearance: Alert, Oriented X3, Cooperative, Not in acute distress HEENT: Atraumatic, Mucous membranes moist/pink Respiratory: Clear to auscultation, Normal air movement, No added sounds Cardiovascular: Regular rate, Normal S1, Normal S2, No murmurs Abdominal: Active bowel sounds, Soft, no distention, no tenderness Extremities: limited activities at left hip, mild tenderness. No edema, Normal pulses, Skin: Mild bruises on right and left flank and on right ribcage Neuro: Normal speech, sensorimotor deficits none Psych/Mental Status: Mental status NL, Mood NL Nurse was there as sharperone during examination laboratory and microbiology Laboratory Tests 07/26/24 08:19 Test 07/26/24 08:19 Range/Units Serum Glucose 127 H 74-106 mg/dL Labs and/or images reviewed: Labs reviewed by me, Image(s) reviewed by me Problem List/Assessment/Plan Problem List/Assessment/Plan # mechanical fall without LOC - head CT negative for acute changes # Acute closed Left greater trochanter nondisplaced fracture - evident on hip CT - pending orthopedic programmer analyst consultant evaluation - currently on pain management as needed # musculoskeletal right ribcage pain - currently on pain management - hot packs - ordered ribcage x-ray # uncontrolled hypertension - continuously monitor - initially given hydralazine p.r.n. but discontinued - currently given nifedipine 30 mg ER - patent currently not taking any medications for high blood pressure at home # uncontrolled type 2 DM - Continuously monitor - Currently on mild sliding scale. Lovenox for now No GI be PPX Cardiac diet Reconciled home meds Goals of care discussed with the patient for more than 27 minutes: Full code status Case management discussed with Dr. Chan, patient and nurse Plan discussed with: Patient My Orders My Orders Orders - ABIOLA AGRAWAL Procedure Category Date Status Time Vitamin B12 LAB 07/26/24 In Process 07:29 Vitamin D, 25-Hydroxy LAB 07/26/24 In Process 07:29 Nifedipine Er PHA 07/27/24 In Process (Procardia Xl 10:00 R Rib Xray XY 07/26/24 Logged 13:44 Date of Service: Jul 26, 2024 Billing Provider: ELAINA CHAN MD Common Visit Codes: [id number] INP/OBS CARE(HIGH) ABIOLA AGRAWAL Jul 26, 2024 13:56 ELAINA CHAN MD Jul 26, 2024 21:53
--- NOTE | 2024-07-26 15:31 | DVHINCON2 ---
Date of service: Jul 26, 2024 Reason for Consultation Left hip fracture History of Present Illness Mr. Wolfe is a 68-year-old male who was brought to the hospital due to complaints of dizziness that has been occurring for over a week and the patient has experienced two falls within that time with one fall causing him to fall onto his left hip and has been having pain radiating down the left leg since that fall. Patient reports ambulating well without assistance before these recent dizzy spells and falls. Patient denied any head trauma, loss of consciousness, chest pain, shortness of breath, nausea, vomiting, fever, or chills. Past Medical History Diabetes Past Surgical History Denies Family History: Diabetes mellitus G8 FATHER FH: cancer G8 MOTHER Family History Noncontributory Social History Patient denies smoking, EtOH, or illicit substance abuse Allergies: Coded Allergies: NO KNOWN ALLERGIES (Unverified , 07/25/24) Home Meds Reported Medications Metformin Hydrochloride (Metformin Hcl) 850 Mg Tab, 850 MG PO for 30 Days, MG 07/26/24 Current Medications Current Medications Medications (Trade) Dose Ordered Sig/Hazel Route PRN Reason Start Time Stop Time Status Last Admin Hydralazine HCl (Apresoline Injection) 10 mg Q6HP PRN IV SBP>150 07/26/24 00:30 07/26/24 07:32 DC 07/26/24 02:55 Sodium Chloride (Saline Lock Ns) 10 ml Q8HR IV 07/26/24 06:00 07/26/24 14:00 Acetaminophen/ Hydrocodone Bitart ([place] 5/325MG Tab) 1 tab Q4HP PRN PO MODERATE PAIN (4-6 PAIN SCALE) 07/26/24 00:30 07/26/24 06:07 Ondansetron HCl (Zofran) 4 mg Q4HP PRN IV NAUSEA / VOMITING 07/26/24 00:30 Docusate Sodium (Colace Capsule) 100 mg BIDPRN PRN PO FOR CONSTIPATION 07/26/24 00:30 Enoxaparin Sodium (Lovenox) 40 mg DAILY SC 07/26/24 10:00 07/26/24 10:55 Acetaminophen (Tylenol Tablet) 650 mg Q6HP PRN PO PAIN SCALE 1-3 OR TEMP>100.4 07/26/24 00:30 Morphine Sulfate 2 mg Q4HPRN PRN IV SEVERE PAIN (7-10 PAIN SCALE) 07/26/24 00:30 Nitroglycerin (Ntrostat Sublingual) 0.4 mg Q5MINP PRN SL FOR CHEST PAIN 07/26/24 01:30 Morphine Sulfate 2 mg Q30M PRN IV FOR CHEST PAIN 07/26/24 01:30 Diagnostic Test (Pha) (Accu-Chek Comfort Curve T) 1 strip ACHS 07/26/24 07:00 07/26/24 12:29 Insulin Human Regular (InsuLIN R) ACHS SC 07/26/24 07:00 07/26/24 12:29 Dextrose 50 ml UD PRN IV Blood Sugar LESS THAN 60 07/26/24 04:15 Nifedipine (Procardia Xl (Time-Release)) 30 mg DAILY PO 07/27/24 10:00 Review of Systems 10 point review of systems negative except as per HPI Vital Signs Vital Signs Date Time Temp Pulse Resp B/P (MAP) Pulse Ox O2 Delivery O2 Flow Rate FiO2 07/26/24 13:00 97.6 81 19 159/89 (112) 95 97.6 07/26/24 03:32 Room Air* 0 21 Physical Exam General appearance: A&O x4 in no acute distress HEENT: Normal ENT inspection, pharynx normal, TMs normal Neck: Full range of motion, nontender, normal inspection Respiratory: Chest nontender, without accessory muscle use, no respiratory distress Cardiovascular: No edema, no JVD, normal peripheral pulses Gastrointestinal: Soft, nontender, no organomegaly. Musculoskeletal: Left hip range of motion grossly intact with pain on movement, no calf tenderness, normal capillary refill, no pedal edema, neurovascularly intact. Skin: Dry, normal color, warm Lymphatic: No adenopathy Labs/Diagnostic Data Labs Test 07/26/24 12:05 07/26/24 08:19 07/25/24 18:13 07/25/24 16:54 Range/Units POC Glucose 187 H 70-106 mg/dl White Blood Count 7.9 4.4-10.8 10^3/uL Red Blood Count 4.36 L 4.5-5.90 10^6/uL Hemoglobin 12.6 L 13.5-17.5 g/dL Hematocrit 37.3 L 41.0-53.0 % Mean Corpuscular Volume 85.4 80.0-100.0 fL Mean Corpuscular Hemoglobin 28.9 28.0-32.0 pg Mean Corpuscular Hemoglobin Concent 33.8 32.0-36.0 g/dL Red Cell Distribution Width 14.3 11.8-14.3 % Platelet Count 259 140-450 10^3/uL Mean Platelet Volume 8.2 6.9-10.8 fL Neutrophils (%) (Auto) 66.8 37.0-80.0 % Lymphocytes (%) (Auto) 20.4 10.0-50.0 % Monocytes (%) (Auto) 10.7 0.0-12.0 % Eosinophils (%) (Auto) 1.6 0.0-7.0 % Basophils (%) (Auto) 0.5 0.0-2.0 % Neutrophils # (Auto) 5.3 1.6-8.6 10 ^3/uL Lymphocytes # (Auto) 1.6 0.4-5.4 10 ^3/uL Monocytes # (Auto) 0.8 0-1.3 10 ^3/uL Eosinophils # (Auto) 0.1 0-0.8 10 ^3/uL Basophils # (Auto) 0 0-0.2 10 ^3/uL Nucleated Red Blood Cells 0.1 % Prothrombin Time 10.8 9.3-11.8 sec Prothrombin Time INR 1.02 0.9-1.15 Activated Partial Thromboplast Time 29.6 24.5-34.5 SEC Sodium Level 141 136-145 mmol/L Potassium Level 3.5 3.5-5.1 mmol/L Chloride Level 106 98-107 mmol/L Carbon Dioxide Level 27 20-31 mmol/L Anion Gap 8 5-15 Blood Urea Nitrogen 18 9-23 mg/dL Creatinine 1.18 0.700-1.30 mg/dL Glomerular Filtration Rate Calc 67 >90 mL/min BUN/Creatinine Ratio 15.3 10.0-20.0 Serum Glucose 127 H 74-106 mg/dL Calcium Level 9.5 8.7-10.4 mg/dL Total Bilirubin 0.5 0.2-1.0 mg/dL Aspartate Amino Transferase (AST) < 8 L 13-40 U/L Alanine Aminotransferase (ALT) 10 7-40 U/L Alkaline Phosphatase 84 46-116 U/L B-Type Natriuretic Peptide 53.73 0-100 pg/mL Total Protein 6.8 5.7-8.2 g/dL Albumin 3.9 3.2-4.8 g/dL Thyroid Stimulating Hormone (TSH) 1.02 0.55-4.78 uIU/mL Urine Color Light-yellow Yellow Urine Clarity Clear Clear Urine pH 6.0 5.0-9.0 Urine Specific [place] 1.025 1.001-1.035 Urine Protein 3+ H Negative Urine Ketones Negative Negative Urine Blood 1+ H Negative /uL Urine Nitrite Negative Negative Urine Bilirubin Negative Negative Urine Urobilinogen Normal Negative mg/dL Urine Leukocyte Esterase Negative Negative /uL Urine RBC 1 0 - 3 /hpf Urine WBC 1 0 - 3 /hpf Urine Squamous Epithelial Cells None seen <5 /hpf Urine Bacteria None seen None Seen /hpf Urine Glucose 4+ H Normal mg/dL Urine Opiates Screen Neg NEGATIVE Urine Fentanyl Screen Neg NEGATIVE Urine Barbiturates Screen Neg NEGATIVE Urine Phencyclidine Screen Neg NEGATIVE Urine Amphetamines Screen Neg NEGATIVE Urine Benzodiazepines Screen Neg NEGATIVE Urine Cocaine Screen Neg NEGATIVE Urine Cannabinoids Screen Neg NEGATIVE Troponin I High Sensitivity 6 </=54 ng/L Test 07/25/24 15:26 Range/Units Hemoglobin A1c 6.8 H <5.7 % A1C Left hip CT scan reviewed and demonstrated: Nondisplaced fracture through the left greater trochanter. Visualized pelvic viscera demonstrates moderate prostatomegaly. Assessment Left greater trochanteric hip fracture Plan/Recommendation I had a lengthy discussion with the patient and after discussing his case and reviewing his imaging studies with Dr. Ren we have recommended against any surgical intervention at this time and instead advised to continue with conservative treatment with rice and advised the patient to remain weight- bearing as tolerated with the assistance of a walker but to avoid any active abduction. Patient instructed to follow up with our office on an outpatient basis once he has been discharged home for further evaluation. She understood and agreed. Thank you for allowing us to participate in the care of your patient. Plan discussed with: Patient DENICE OREILLY Jul 26, 2024 15:31
[2024-07-26] MEDS ORDERED: TAMS1CAP25 PO (15:37)
[2024-07-26] MEDS ORDERED: DAPA10TA3 PO (15:37)
[2024-07-26] MEDS ORDERED: ACET500T58 PO (15:37)
[2024-07-26] MEDS ORDERED: AMLO-412 PO (15:37)
[2024-07-26] MEDS ORDERED: ASPI300S PR (15:37)
--- NOTE | 2024-07-26 16:42 | DVH ---
EXAMINATION: XY R RIB XRAY INDICATION: Left ribcage pain mechanical fall COMPARISON: None TECHNIQUE: Frontal view of the chest and 4 views of the right ribs history FINDINGS: No focal consolidation, pleural effusion or significant pneumothorax. Normal cardiomediastinal silhou ette. Mildly displaced acute traumatic fracture of the right 10th lateral rib. IMPRESSION: 1. Mildly displaced acute traumatic fracture of the right 10th lateral rib. No pneumothorax.
[2024-07-27] VITALS (7 sets, daily range): BP systolic 127–179; BP diastolic 76–99; PULSE 73–107; RESP 17–19; TEMP 98–98.5; O2SAT 91–97
[2024-07-27] MEDS: NIFEdipine ER 30 MG TAB PO ONE (02:34)
[2024-07-27] MEDS: hydrALAZINE HCL 20 MG/ML VL IV ONE (02:34)
[2024-07-27] MEDS: hydrALAZINE HCL 20 MG/ML VL IV PRN (05:03)
[2024-07-27 06:24] LABS: Alkaline Phosphatase 78 U/L (46-116); Anion Gap 10 (5-15); Blood Urea Nitrogen 12 mg/dL (9-23); Calcium 9.7 mg/dL (8.7-10.4); Carbon Dioxide 23 mmol/L (20-31); Chloride 106 mmol/L (98-107); Glucose 149 mg/dL (74-106); Potassium 3.8 mmol/L (3.5-5.1); Sodium 139 mmol/L (136-145)
[2024-07-27 06:25] LABS: Albumin 3.7 g/dL (3.2-4.8); Aspartate Aminotransferase < 8 U/L (13-40); Basophils # (auto) 0 10 ^3/uL (0-0.2); Basophils % (auto) 0.5 % (0.0-2.0); Bilirubin, Total 0.5 mg/dL (0.2-1.0); Eosinophils # (auto) 0.1 10 ^3/uL (0-0.8); Eosinophils % (auto) 1.4 % (0.0-7.0); Hematocrit 35.2 % (41.0-53.0); Lymphocytes # (auto) 1.4 10 ^3/uL (0.4-5.4); Lymphocytes % (auto) 18.3 % (10.0-50.0); Mean Corpuscular Volume 85.3 fL (80.0-100.0); Monocytes # (auto) 0.7 10 ^3/uL (0-1.3); Monocytes % (auto) 8.4 % (0.0-12.0); Neutrophils # (auto) 5.5 10 ^3/uL (1.6-8.6); Neutrophils % (auto) 71.4 % (37.0-80.0); Platelet Count (auto) 272 10^3/uL (140-450); Red Blood Cells 4.13 10^6/uL (4.5-5.90); Red Cell Distribution Width 14.1 % (11.8-14.3); Total Protein 6.5 g/dL (5.7-8.2); White Blood Cell 7.7 10^3/uL (4.4-10.8)
[2024-07-27 06:39] LABS: Alanine Aminotransferase < 9 U/L (7-40)
[2024-07-27] MEDS ORDERED: NIFEdipine ER 30 MG TAB PO SCH (10:00)
[2024-07-27] MEDS: NIFEdipine ER 30 MG TAB PO SCH (12:23)
--- NOTE | 2024-07-27 16:19 | DVHDSRES ---
Discharge Summary Date of Admission Resident Creating Document: ABIOLA AGRAWAL RESIDENT Jul 26, 2024 at 01:25 Date of Discharge: Jul 27, 2024 Admitting Diagnosis Left hip pain after mechanical fall Labs/Diagnostic Data: Laboratory Results Test 07/27/24 12:04 07/27/24 05:29 07/26/24 08:19 07/25/24 18:13 POC Glucose 182 mg/dl (70-106) White Blood Count 7.7 10^3/uL (4.4-10.8) Red Blood Count 4.13 10^6/uL (4.5-5.90) Hemoglobin 12.0 g/dL (13.5-17.5) Hematocrit 35.2 % (41.0-53.0) Mean Corpuscular Volume 85.3 fL (80.0-100.0) Mean Corpuscular Hemoglobin 29.0 pg (28.0-32.0) Mean Corpuscular Hemoglobin Concent 34.0 g/dL (32.0-36.0) Red Cell Distribution Width 14.1 % (11.8-14.3) Platelet Count 272 10^3/uL (140-450) Mean Platelet Volume 8.2 fL (6.9-10.8) Neutrophils (%) (Auto) 71.4 % (37.0-80.0) Lymphocytes (%) (Auto) 18.3 % (10.0-50.0) Monocytes (%) (Auto) 8.4 % (0.0-12.0) Eosinophils (%) (Auto) 1.4 % (0.0-7.0) Basophils (%) (Auto) 0.5 % (0.0-2.0) Neutrophils # (Auto) 5.5 10 ^3/uL (1.6-8.6) Lymphocytes # (Auto) 1.4 10 ^3/uL (0.4-5.4) Monocytes # (Auto) 0.7 10 ^3/uL (0-1.3) Eosinophils # (Auto) 0.1 10 ^3/uL (0-0.8) Basophils # (Auto) 0 10 ^3/uL (0-0.2) Nucleated Red Blood Cells 0.0 % Sodium Level 139 mmol/L (136-145) Potassium Level 3.8 mmol/L (3.5-5.1) Chloride Level 106 mmol/L (98-107) Carbon Dioxide Level 23 mmol/L (20-31) Anion Gap 10 (5-15) Blood Urea Nitrogen 12 mg/dL (9-23) Creatinine 1.00 mg/dL (0.700-1.30) Glomerular Filtration Rate Calc 81 mL/min (>90) BUN/Creatinine Ratio 12.0 (10.0-20.0) Serum Glucose 149 mg/dL (74-106) Calcium Level 9.7 mg/dL (8.7-10.4) Total Bilirubin 0.5 mg/dL (0.2-1.0) Aspartate Amino Transferase (AST) < 8 U/L (13-40) Alanine Aminotransferase (ALT) < 9 U/L (7-40) Alkaline Phosphatase 78 U/L (46-116) Total Protein 6.5 g/dL (5.7-8.2) Albumin 3.7 g/dL (3.2-4.8) Prothrombin Time 10.8 sec (9.3-11.8) Prothrombin Time INR 1.02 (0.9-1.15) Activated Partial Thromboplast Time 29.6 SEC (24.5-34.5) B-Type Natriuretic Peptide 53.73 pg/mL (0-100) Thyroid Stimulating Hormone (TSH) 1.02 uIU/mL (0.55-4.78) Urine Color Light-yellow (Yellow) Urine Clarity Clear (Clear) Urine pH 6.0 (5.0-9.0) Urine Specific [place] 1.025 (1.001-1.035) Urine Protein 3+ (Negative) Urine Ketones Negative (Negative) Urine Blood 1+ /uL (Negative) Urine Nitrite Negative (Negative) Urine Bilirubin Negative (Negative) Urine Urobilinogen Normal mg/dL (Negative) Urine Leukocyte Esterase Negative /uL (Negative) Urine RBC 1 /hpf (0 - 3) Urine WBC 1 /hpf (0 - 3) Urine Squamous Epithelial Cells None seen /hpf (<5) Urine Bacteria None seen /hpf (None Seen) Urine Glucose 4+ mg/dL (Normal) Urine Opiates Screen Neg (NEGATIVE) Urine Fentanyl Screen Neg (NEGATIVE) Urine Barbiturates Screen Neg (NEGATIVE) Urine Phencyclidine Screen Neg (NEGATIVE) Urine Amphetamines Screen Neg (NEGATIVE) Urine Benzodiazepines Screen Neg (NEGATIVE) Urine Cocaine Screen Neg (NEGATIVE) Urine Cannabinoids Screen Neg (NEGATIVE) Test 07/25/24 16:54 07/25/24 15:26 Troponin I High Sensitivity 6 ng/L (</=54) Hemoglobin A1c 6.8 % A1C (<5.7) Other Laboratory Tests 07/27/24 05:29 Brief Hx & Hospital Course: Rochelle LIGHT a 68 years old male with a PMH of type 2 DM, HTN presented to the ED with the chief complaints of Left hip pain after mechanical fall. 1 week proir patient was walking, tripped fell on the left side of his body, did not hit his head, since then patient has been feeling mild weakness in the left leg and limited activities. Two days back while taking shower, he felt left leg was very weak, unable to bear the weight, fell in the bathtub towards his right side, Complaining of ribcage pain and some bruits on right flank.. On my assessment patient denies fever, nausea, vomiting, dizziness, loss of consciousness, chest pain, palpitations, abdominal pain and other associated symptoms. The patient required hospital admission for further evaluation management of mechanical fall. CT head showed no acute changes. Left hip CT scan reviewed and demonstrated: Nondisplaced fracture through the left greater trochanter. Visualized pelvic viscera demonstrates moderate prostatomegaly. Right rib x-ray showed Mildly displaced acute traumatic fracture of the right 10th lateral rib. No pneumothorax. Patient was on pain medication, consulted Orthopedics, advised no urgent surgical intervention at this time and advised to continue with conservative treatment with rice and advised the patient to remain weight- bearing as tolerated with the assistance of a walker but to avoid any active abduction, advised to follow up with office on an outpatient basis once he has been discharged home for further evaluation. Patient is being noncompliant with his hypertensive medications, advised about medication compliance. Patient condition was improved, hemodynamically stable and in condition to be dischargedhome. discharge plan discussed with the patient and agreed to the plan. Patient was advised about healthy lifestyle habits including diet and exercise and to follow up with PCP and Orthopedics on outpatient. Pt is lying on bed General Appearance: Alert, Oriented X3, Cooperative, Not in acute distress HEENT: Atraumatic, Mucous membranes moist/pink Respiratory: Clear to auscultation, Normal air movement, No added sounds Cardiovascular: Regular rate, Normal S1, Normal S2, No murmurs Abdominal: Active bowel sounds, Soft, no distention, no tenderness Extremities: limited activities at left hip, mild tenderness. No edema, Normal pulses, Skin: Mild bruises on right and left flank and on right ribcage Neuro: Normal speech, sensorimotor deficits none Psych/Mental Status: Mental status NL, Mood NL Nurse was there as sharperone during examination Operations or Procedures Left hip CT scan reviewed and demonstrated: Nondisplaced fracture through the left greater trochanter. Visualized pelvic viscera demonstrates moderate prostatomegaly. CT HEAD WITHOUT CONTRAST: No acute intracranial abnormality. XY R RIB XRAY: Mildly displaced acute traumatic fracture of the right 10th lateral rib. No pneumothorax. Condition at Discharge: Stable Final Diagnosis/Problems List # mechanical fall without LOC # Acute closed Left greater trochanter nondisplaced hip fracture # Right 10th lateral rib fracture # musculoskeletal right ribcage pain # uncontrolled hypertension # uncontrolled type 2 DM Discharge Disposition: Home Discharge Instruct/Medications Diet: Consistent carbohydrate, See Comment Activity: See Comment Activity comment: weight-bearing as tolerated with the assistance of a walker but to avoid any active abduction Follow Up/Referral: PCP and Orthopedics Medications: Per EMR Discharge Statement: "Patient was advised to return to the ER or call 911 if any headaches, dizziness, shortness of breath, chest pain, abdominal pain, bleeding, fevers, or worsening of medical condition. Patient was counseled about treatment plan, medications, possible side effects, patientverbalized understanding. All questions were answered to the best of my ability. This discharge took greater then 30 minutes in planning, reviewing documentation, counseling the patient, and discussing with other team members." ASSESSMENT ASSESSMENT Assessment # mechanical fall without LOC # Acute closed Left greater trochanter nondisplaced fracture Date of Service: Jul 27, 2024 Billing Provider: ELAINA RUIZ MD Common Visit Codes: 75089-BCV/OBS DISCH DAY >30min ABIOLA AGRAWAL Jul 27, 2024 16:19 ELAINA RUIZ MD Jul 27, 2024 20:05
[2024-07-27] MEDS ORDERED: NIFE1TAB31 PO (16:21)
[2024-07-27] MEDS ORDERED: ATOR40TA52 PO (16:21)
[2024-07-27] MEDS ORDERED: ACET-1882 PO (16:21)
== END 2024-07-27 17:40 | disposition home or self-care (01) | DRG 340 ==
LOC: ER 15:03 → OVERFLOW 07-26 01:25 → WEST WING 07-26 03:14
PROVIDERS: ADMIT Student in an Organized Health Care Education/Training Program; ATTEND Student in an Organized Health Care Education/Training Program
DX: S72.115A Nondisplaced fracture of greater trochanter of left femur, initial encounter for closed fracture (principal); E11.65 Type 2 diabetes mellitus with hyperglycemia; S22.31XA Fracture of one rib, right side, initial encounter for closed fracture; I10 Essential (primary) hypertension; W01.0XXA Fall on same level from slipping, tripping and stumbling without subsequent striking against object, initial encounter; Z83.3 Family history of diabetes mellitus; Y93.89 Activity, other specified; Y92.89 Other specified places as the place of occurrence of the external cause; Y99.8 Other external cause status; Z80.9 Family history of malignant neoplasm, unspecified; Z79.84 Long term (current) use of oral hypoglycemic drugs
CPT/HCPCS: 36415; 70450; 71046; 71101; 73700; 80048; 80053; 80307; 81001; 82306; 82607; 82962; 83036; 83880; 84443; 84484; 85025; 85610; 85730; G0378; J1815